=== PATIENT | female | born 1970 | race Hispanic/Latino ===

== ENCOUNTER → 2021-08-23 | Day surgery (SDC) | payer BC, OTHER ==
[~2021-08-23] MED LIST: AMLODIPINE BESYL5 MG PO; ASPIRIN81 MG PO; FENTANYL CITRATE/PF 100MCG/2 ML INJ ONE; GLYCOPYRROLATE INJ 0.2 MG/ML VIAL ONE; HYOSCYAMINE SULFATE 0.5 MG/ML INJ ONE; LIPITOR10 MG PO; MIDAZOLAM HCL 2 MG/2 ML VIAL ONE; PROPOFOL IV EMULSION 10 MG/ML 20 ML VIAL ONE
[2021-08-23 11:00] VITALS: BP 119/71
== END | disposition home or self-care (01) ==
LOC: OR 08:10
PROVIDERS: ATTEND Internal Medicine Gastroenterology
DX: Z12.11 Encounter for screening for malignant neoplasm of colon (principal); D12.5 Benign neoplasm of sigmoid colon; K29.70 Gastritis, unspecified, without bleeding; K21.9 Gastro-esophageal reflux disease without esophagitis; K20.90 Esophagitis, unspecified without bleeding; D72.820 Lymphocytosis (symptomatic); K22.89 Other specified disease of esophagus; K44.9 Diaphragmatic hernia without obstruction or gangrene; K64.8 Other hemorrhoids; Z71.3 Dietary counseling and surveillance; I10 Essential (primary) hypertension; Z79.82 Long term (current) use of aspirin; Z79.899 Other long term (current) drug therapy; Z68.30 Body mass index [BMI] 30.0-30.9, adult
CPT/HCPCS: 43239; 45378; 45380; 45385; 93005; J1980; J2250; J3010